=== PATIENT | female | born 1945 | race Caucasian/White ===

== ENCOUNTER 2020-07-23 09:23 | Outpatient (CLI) | payer MEDICARE, SELFPAY ==
--- NOTE | ~2020-07-23 | XR_ITS ---
EXAMINATION: XR chest 2V DATE: 07/23/2020 10:48 INDICATION: Uncontrolled hypertension presenting for preoperative evaluation for left knee arthroplas ty. TECHNIQUE: PA and lateral views of the chest were obtained. COMPARISON: 12/12/2018 FINDINGS: The lungs remain clear with no focal airspace opacities, pulmonary edema, pleural effusion or pneumot horax. The cardiomediastinal silhouette is normal. Pectus excavatum. Mild thoracic spondylosis with m inimal anterior wedging of a few lower thoracic vertebral bodies. IMPRESSION: 1. No acute cardiopulmonary disease. Reviewed, dictated and finalized at location B.
[2020-07-23 10:51] LABS: Basophils Percent Auto 0.5 % (0.2-1.2); Eosinophils Absolute Auto 0.2 K/mm3 (0-0.3); Eosinophils Percent Auto 2.4 % (0-4.4); Hematocrit 44.2 % (37.0-47.0); Hemoglobin 14.1 g/dL (12.0-15.0); Immature Granulocyte Absolute 0.02 K/mm3 (0.00-0.031); Immature Granulocyte Percent A 0.3 % (0-0.5); Lymphocytes Absolute Auto 1.46 K/mm3 (0.9-3.2); Lymphocytes Percent Auto 23.6 % (18.3-44.2); Mean Corpuscular HGB Conc 31.9 g/dl (32-36); Mean Corpuscular Volume 90.9 fl (80-100); Mean Platelet Volume 9.9 fl (7.4-10.4); Monocytes Absolute Auto 0.5 K/mm3 (0.1-0.6); Monocytes Percent Auto 8.7 % (2.6-8.5); Neutrophils Percent Auto 64.5 % (45.5-73.1); Platelet Count Result 368 k/mm3 (150-375); Red Blood Count 4.86 M/mm3 (4.2-5.4); Red Cell Distribution Width 13.5 % (11.5-14.5); White Blood Count 6.2 K/mm3 (4.5-10.0)
[2020-07-23 11:01] LABS: Hemoglobin A1C 5.4 % (<5.7); Urine Cotinine NEGATIVE
[2020-07-23 11:03] LABS: Albumin Level 4.5 g/dL (3.5-5.1); Anion Gap 7 mmol/L (8-16); Blood Urea Nitrogen 14 mg/dL (7-17); Calcium 10.4 mg/dL (8.4-10.2); Carbon Dioxide 32 mmol/L (22-30); Chloride 101 mmol/L (98-107); Estimated Glomerular Filt Rate > 60; Glucose 99 mg/dL (65-105); Potassium 4.8 mmol/L (3.4-5.0); Sodium 140 mmol/L (137-145)
== END 2020-07-23 09:24 | disposition home or self-care (01) ==
PROVIDERS: PCP Internal Medicine; Visit Provider Orthopaedic Surgery
DX: M17.12 Unilateral primary osteoarthritis, left knee (principal); Z01.818 Encounter for other preprocedural examination
CPT/HCPCS: 71046; 80048; 80307; 82040; 83036; 85025; 87070

== ENCOUNTER 2020-10-19 09:49 | Outpatient (CLI) | payer MEDICARE, SELFPAY ==
[2020-10-19 11:36] LABS: Basophils Percent Auto 0.6 % (0.2-1.2); Eosinophils Absolute Auto 0.2 K/mm3 (0-0.3); Eosinophils Percent Auto 2.2 % (0-4.4); Hematocrit 44.3 % (37.0-47.0); Immature Granulocyte Absolute 0.03 K/mm3 (0.00-0.031); Immature Granulocyte Percent A 0.4 % (0-0.5); Lymphocytes Absolute Auto 1.76 K/mm3 (0.9-3.2); Lymphocytes Percent Auto 24.4 % (18.3-44.2); Mean Corpuscular HGB Conc 31.6 g/dl (32-36); Mean Corpuscular Volume 91.9 fl (80-100); Mean Platelet Volume 10.1 fl (7.4-10.4); Monocytes Absolute Auto 0.6 K/mm3 (0.1-0.6); Monocytes Percent Auto 7.8 % (2.6-8.5); Neutrophils Absolute Auto 4.7 K/mm3 (1.3-6.7); Neutrophils Percent Auto 64.6 % (45.5-73.1); Platelet Count Result 368 k/mm3 (150-375); Red Blood Count 4.82 M/mm3 (4.2-5.4); Red Cell Distribution Width 13.3 % (11.5-14.5); White Blood Count 7.2 K/mm3 (4.5-10.0)
[2020-10-19 11:42] LABS: Urine Cotinine NEGATIVE
[2020-10-19 11:45] LABS: Hemoglobin A1C 5.5 % (<5.7)
[2020-10-19 11:48] LABS: Albumin Level 4.4 g/dL (3.5-5.1); Anion Gap 4 mmol/L (8-16); Blood Urea Nitrogen 12 mg/dL (7-17); Carbon Dioxide 33 mmol/L (22-30); Chloride 100 mmol/L (98-107); Estimated Glomerular Filt Rate > 60; Glucose 88 mg/dL (65-105); Potassium 4.4 mmol/L (3.4-5.0); Sodium 137 mmol/L (137-145)
== END 2020-10-19 09:50 | disposition home or self-care (01) ==
PROVIDERS: PCP Internal Medicine; Visit Provider Orthopaedic Surgery
DX: M17.12 Unilateral primary osteoarthritis, left knee (principal); Z51.81 Encounter for therapeutic drug level monitoring; Z79.899 Other long term (current) drug therapy
CPT/HCPCS: 80048; 80307; 82040; 83036; 85025; 86850; 86900; 86901; 87070

== ENCOUNTER 2020-10-24 00:53 | Outpatient (CLI) | payer MEDICARE, SELFPAY ==
[2020-10-24 18:47] LABS: SARS-CoV-2 RNA PCR Negative
== END 2020-10-24 00:54 | disposition home or self-care (01) ==
LOC: ANHCOVIDDT 00:53
PROVIDERS: PCP Internal Medicine; Visit Provider Orthopaedic Surgery
DX: Z01.812 Encounter for preprocedural laboratory examination (principal); Z20.822 Contact with and (suspected) exposure to COVID-19
CPT/HCPCS: C9803; U0003; U0005

== ENCOUNTER 2020-10-28 00:35 | Day surgery (SDC) | payer MEDICARE, SELFPAY ==
[2020-07-23 09:36] VITALS: BMI 30.3
[2020-07-23 10:36] VITALS: BP 113/77; PULSE 79; RESP 16; TEMP 36.6; O2SAT 97
[2020-10-19 10:12] VITALS: BP 121/69; PULSE 71; RESP 16; TEMP 36.3; O2SAT 98; BMI 30.7
--- NOTE | 2020-10-23 11:29 | PM.IMHP ---
H&P: HPI History of Present Illness Date/Time: 10/23/20 11:29 <ALEJANDRO Sommers - Last Filed: 10/23/20 11:41> Chief Complaint: Left knee DJD <ALEJANDRO Sommers - Last Filed: 10/23/20 11:41> Narrative: Corrina Gonzalez is a 74 year old female patient of Dr. Grant, who presents today for a left total knee arthroplasty. She underwent right total knee arthroplasty in December of 2018. she did very well with her recovery and is very happy with her results. She has reached a point where her left knee is bothersome for her on a daily basis. She has severe lateral compartment arthritis in the knee. She is unable take anti-inflammatories because she is on Eliquis long-term. She has had history of atrial fibrillation and recently underwent heart ablation procedure, this did correct it. Again her left knee is painful for her on a daily basis. It affects her daily activities. She feels she is ready to proceed with left total knee at this time. <ALEJANDRO Sommers - Last Filed: 10/23/20 11:41> [facility] Past Medical History Medical History: Medical History (Updated 10/28/20 @ 06:58 by Ramon Aldrich MD) A-fib Hypertension <ALEJANDRO Sommers - Last Filed: 10/23/20 11:41> Surgical History Surgical History: Surgical History History of total right knee replacement (TKR) <ALEJANDRO Sommers - Last Filed: 10/23/20 11:41> Family History Family History: Family History Other Heart disease <ALEJANDRO Sommers - Last Filed: 10/23/20 11:41> Social History Social History: Social History Smoking status: Never smoker Second hand tobacco smoke exposure: No Additional smoking assessment comments: DENIES ANY TOBACCO/NICOTINE USE Alcohol intake: current Alcohol use details: 2 DRINKS PER MONTH- WINE Substance use: never Living arrangements: alone Spiritual care concerns: No <ALEJANDRO Sommers - Last Filed: 10/23/20 11:41> Meds Home Medications and Allergies Home medications: Home Medications Medication Instructions Recorded Confirmed Type apixaban [Eliquis] 5 mg PO BID 07/23/20 10/28/20 History biotin 10,000 mcg PO QAM 07/23/20 10/28/20 History calcium carbonate-vitamin D3 1 cap PO QAM 07/23/20 10/28/20 History [Calcium With Vitamin D3] cyanocobalamin (vitamin B-12) 1,000 mcg PO DAILY 07/23/20 10/28/20 History furosemide 20 mg PO QAM 07/23/20 10/28/20 History glucosamine-chondroitin [Osteo 1 tablet PO QAM 07/23/20 10/28/20 History Bi-Flex] metoprolol succinate 150 mg PO QAM 07/23/20 10/28/20 History sacubitril-valsartan [Entresto] 24 - 26 tablet PO BID 07/23/20 10/28/20 History <ALEJANDRO Sommers - Last Filed: 10/23/20 11:41> Allergies/Adverse reactions: Allergies Allergy/AdvReac Type Severity Reaction Status Date / Time Penicillins Allergy Mild HIVES Verified 10/28/20 06:09 <ALEJANDRO Sommers Last Filed: 10/23/20 11:41> Exam Narrative: Exam Narrative: 74-year-old female very alert pleasant in no distress. She is 5 ft 10 and 218 lb. She walks with a mild limp. Range of motion left knee is from 10-140 degrees. There is normal stability. There is no effusion in the knee. Moderate tenderness over the lateral joint line. Hip range motion is full without discomfort. Negative Stinchfield maneuver. Normal quad strength. 2+ posterior tibial artery pulse. Normal sensation to the left lower extremity. Skin is all normal left lower extremity without edema. <ALEJANDRO Sommers Last Filed: 10/23/20 11:41> Resp: Auscultation: clear to auscultation bilaterally <ALEJANDRO Sommers Last Filed: 10/23/20 11:41> Cardio: Rate: regular rate <ALEJANDRO Sommers Last Filed: 10/23/20 11:41> Rhythm: regular rhythm <ALEJANDRO Sommers - Last Filed: 10/23/20 11:41> Assessment and Plan
[2020-10-28] VITALS (12 sets, daily range): BP systolic 110–151; BP diastolic 48–94; PULSE 68–97; RESP 12–18; TEMP 36.1–37.2; O2SAT 95–100
--- NOTE | ~2020-10-28 | XR_ITS ---
EXAMINATION: XR knee LT 2V DATE: 10/28/2020 11:25 INDICATION: Total left knee arthroplasty. Postop. TECHNIQUE: 2 views of left knee were obtained. COMPARISON: None. FINDINGS: There is a total left knee arthroplasty with patellar resurfacing in near-anatomic alignmen t. No fracture. There is gas in the knee joint and soft tissues, consistent with recent surgery. IMPRESSION: 1. Total left knee arthroplasty in near-anatomic alignment. Reviewed, dictated and finalized at location A. TOLOGIST
[2020-10-28] MEDS: ACETAMINOPHEN 500 MG TABLET 1000 MG PO ×3 (06:15→18:46)
[2020-10-28] MEDS: LACTATED RINGERS 1,000 ML 30 ML IV CONT ×2 (06:32→11:22)
--- NOTE | 2020-10-28 06:58 | WPDANESEPPF ---
Anes - Initial Pre Proc Eval Procedure: Operation Date: 10/28/20 07:30 Proposed Procedures p Left Total Knee Arthroplasty - Fidel De La Paz MD Date/Time: 10/28/20 06:58 Surgeon: Fidel De La Paz MD Pre Op Diagnosis: OA Left Knee Patient Data Age: 74 Gender: F Height: 5 ft 11.5 in Weight: 100.9 kg Last Vital Signs Temp 99 F 10/28/20 06:35 Pulse 70 10/28/20 06:35 Resp 16 10/28/20 06:35 BP 123/62 10/28/20 06:35 Pulse Ox 100 10/28/20 06:35 Allergies Allergy/AdvReac Type Severity Reaction Status Date / Time Penicillins Allergy Mild HIVES Verified 10/28/20 06:09 Home Medications Medication Instructions Recorded Confirmed Type apixaban [Eliquis] 5 mg PO BID 07/23/20 10/28/20 History biotin 10,000 mcg PO QAM 07/23/20 10/28/20 History calcium carbonate-vitamin D3 1 cap PO QAM 07/23/20 10/28/20 History [Calcium With Vitamin D3] cyanocobalamin (vitamin B-12) 1,000 mcg PO DAILY 07/23/20 10/28/20 History furosemide 20 mg PO QAM 07/23/20 10/28/20 History glucosamine-chondroitin [Osteo 1 tablet PO QAM 07/23/20 10/28/20 History Bi-Flex] metoprolol succinate 150 mg PO QAM 07/23/20 10/28/20 History sacubitril-valsartan [Entresto] 24 - 26 tablet PO BID 07/23/20 10/28/20 History Patient hx anesthesia problems: none Family hx anesthesia problems: none PMFSH Past Medical History Medical History (Updated 10/28/20 @ 06:58 by Ramon Aldrich MD) A-fib Hypertension Surgical History Surgical History History of total right knee replacement (TKR) Family History Family History Other Heart disease Social History Social History Smoking status: Never smoker Second hand tobacco smoke exposure: No Additional smoking assessment comments: DENIES ANY TOBACCO/NICOTINE USE Alcohol intake: current Alcohol use details: 2 DRINKS PER MONTH- WINE Substance use: never Living arrangements: alone Spiritual care concerns: No Anes - Eval Final PreProcedure Day of Procedure 10/28/20 06:58 Patient weight: obese Heart: regular rate and rhythm Lungs: clear to auscultation Airway: Mallampati scale class II Neurological: alert and oriented Last oral intake: >/= 8 hours ASA classification: III Emergent: no Anesthetic plan: proceed Anesthesia type and monitoring: general ETT and standard monitoring Informed Consent: The patient's anesthetic plan and its attendant risks and benefits were discussed with the patient/family/POA. Questions were solicited and answers provided to the satisfaction of the patient/family/POA.
[2020-10-28] MEDS: TRANEXAMIC ACID 1,000MG/ISO100 1,000 MG/100 ML BAG 200 MG IVPB (06:59)
--- NOTE | 2020-10-28 07:13 | WPDHPUPDATE1 ---
History and Physical Update Update Date/Time: 10/28/20 07:13 History and Physical has been reviewed, including an updated exam of the patient. There are NO changes in the patient's condition. Risks, benefits, and alternatives have been discussed and questions answered. Patient agrees to proceed with procedure.
[2020-10-28] MEDS: ceFAZolin 2 GM/D5W 50 ML 2 GM/50 ML BAG IVPB (07:25)
[2020-10-28] MEDS: ceFAZolin SODIUM 1 GM VIAL 3 GM IRRIGATION (08:07)
[2020-10-28] MEDS: GENTAMICIN BONE CEMENT REFOBACIN 1 EACH TOPICAL (08:08)
[2020-10-28] MEDS: ceFAZolin SODIUM 1 GM VIAL IV PUSH (10:04)
[2020-10-28] MEDS: TRANEXAMIC ACID 1,000 MG/10 ML AMPUL 1000 MG IV PUSH (10:05)
--- NOTE | 2020-10-28 11:17 | PM.PROC ---
Procedure Note - Detailed Date of procedure: 10/28/20 Pre-op diagnosis: OA Left Knee Grade 1 valgus osteoarthritis lateral compartment left knee Post-op diagnosis: same Procedure performed: Left total knee arthroplasty Description of procedure: Patient was brought to the operating room and general anesthesia was administered left leg prepped draped usual fashion. She received 2 g Ancef weight based vancomycin 1 g of tranexamic acid preoperatively and the left leg was prepped draped usual fashion. Limb was exsanguinated and tourniquet elevated to 90 mmHg. A 7 in longitudinal midline incision was used and a vastus medialis splitting approach utilized. Infrapatellar and suprapatellar fat pads were excised and a quadriceps synovectomy carried out. The patella had full-thickness cartilage loss centrally measured 23 mm and was cut to 15 mm. Bone quality was good. A protector cap was applied. A guide liz was inserted down the femoral canal after aspiration of canal contents and using the 5 degree cutting bushing 9 mm of bone removed the distal femur. This removed equal amounts medially and laterally. Next the tibial plateau was cut. We made a skim cut. She had a pronounced degree of posterior slope on her tibial plateau. The low where spot was posterolaterally where she had eburnated bone. Another 2 mm of bone had to be removed to get to the low point of the posterior margin of the lateral plateau. The anterior tibia was a little bit softer than average. Meniscal remnants were excised and the PCL released. The the femoral Sizer was applied to the distal femur set at 5? of external rotation which matched [place] line. Using the 65 vanguard cutting block AP and chamfer cuts were made. This gave a nice fit for the femoral component line to line medial collateral and anterior to posterior. On trialing we were tight laterally and a had extra play at 90? of flexion posteriorly. The distal femoral cutting block was reapplied and 2 mm of bone removed chamfer cuts revisited. The tibia was sized to a size 71 placed at proper rotation referenced off anterior tibial plateau medial 1/3 of tibial tubercle and the foot. This was punched in place. We trialed with the 11 insert and we were still a bit loose in flexion and tight in flexion particularly laterally. The on IT band was pie crusted and the posterolateral corner released the posterolateral margin of the tibial plateau. The lateral collateral and popliteus left intact. Posterior femoral osteophyte was removed and posterior central capsular release performed. We trialed again with the size 12 insert which was nice stability in flexion but still had a fairly positive bounce with only 1 mm medial opening less than 1 mm of lateral opening in extension. Therefore an additional 1 mm of bone was removed from the distal femur chamfer cuts revisited. On read trialing the knee came out to full extension with a negative bounce 2 mm medial opening 1 mm lateral. The patella was sized to a 34 thin which restored composite thickness to the patella of 23 mm and there was central patellar tracking with range of motion. We had put the tourniquet down 90 minutes and at this time the limb was re-exsanguinated and the tourniquet really beta. The a step drill was used to make multiple perforations in the dense bone the tibial plateau and posterior femur. The bony surfaces were thoroughly irrigated and dried. Two batches of methylmethacrylate Biomet were mixed 1 containing the gentamicin powder. The cement was immediately applied the tibial component and then the femoral component cement pressurized into the tibia and the 71 tibia fully seated. The cement was applied to the femur and the femoral component fully seated the knee brought into extension with a 12 mm 5 in 1 poly. The 34 thin patella was cemented tourniquet released. Cement was allowed to harden after which excess cement was sought for and removed and hemostasis achieve
[2020-10-28] MEDS: fentaNYL CITRATE INJ (*CRX) 100 MCG/2 ML VIAL 25 MCG IV PUSH ×4 (11:35→11:53)
[2020-10-28] MEDS: HYDROmorphone HCL INJ (*CRX) 1 MG/ML SYR 0.5 MG IV PUSH ×4 (12:01→12:20)
--- NOTE | 2020-10-28 13:08 | ADMGEN ---
This patient, Corrina Gonzalez, was admitted to 2 Medical Room 257-01. Patient/family oriented to hospital policies and general routines including ID bracelet, bed and alarms, visiting hours, pain management, procedures, bathroom and other care routines, personal items, smoking policy, room service/diet, and visiting hours. Information on how to activate the Rapid Response Team has been discussed. Patient/Family are encouraged to report perceived risks to care and to ask questions if they do not understand what they are told or what they should do.
[2020-10-28] MEDS: oxyCODONE HCL (*CRX) 2.5 MG TAB IR PO ×3 (13:15→20:35)
[2020-10-28] MEDS: SODIUM CHLORIDE 0.9% IV 1,000 ML 125 ML IV CONT (13:16)
[2020-10-28] MEDS: DOCUSATE SODIUM 100 MG CAPSULE PO (16:35)
[2020-10-28] MEDS: SENNA/DOCUSATE SODIUM TABLET 2 TAB PO (18:47)
[2020-10-28] MEDS: CELECOXIB 200 MG CAPSULE PO (20:35)
[2020-10-28] MEDS: SACUBITRIL/VALSARTAN 24-26 MG TABLET 1 TAB PO (20:35)
[2020-10-29] VITALS (8 sets, daily range): BP systolic 96–116; BP diastolic 46–59; PULSE 71–96; RESP 18; TEMP 36.6–37; O2SAT 97–100
[2020-10-29] MEDS: oxyCODONE HCL (*CRX) 2.5 MG TAB IR PO ×2 (01:03→05:41)
[2020-10-29] MEDS: ACETAMINOPHEN 500 MG TABLET 1000 MG PO ×3 (01:04→12:51)
[2020-10-29 06:04] LABS: Anion Gap 3 mmol/L (8-16); Blood Urea Nitrogen 10 mg/dL (7-17); Calcium 8.4 mg/dL (8.4-10.2); Carbon Dioxide 26 mmol/L (22-30); Chloride 106 mmol/L (98-107); Estimated CRCL calculation 95 ml/min; Estimated Glomerular Filt Rate > 60; Glucose 94 mg/dL (65-105); Potassium 4.1 mmol/L (3.4-5.0); Sodium 135 mmol/L (137-145)
[2020-10-29 06:11] LABS: Basophils Percent Auto 0.2 % (0.2-1.2); Eosinophils Percent Auto 0.3 % (0-4.4); Hematocrit 35.3 % (37.0-47.0); Hemoglobin 11.1 g/dL (12.0-15.0); Immature Granulocyte Absolute 0.03 K/mm3 (0.00-0.031); Immature Granulocyte Percent A 0.3 % (0-0.5); Lymphocytes Percent Auto 18.7 % (18.3-44.2); Mean Corpuscular HGB Conc 31.4 g/dl (32-36); Mean Corpuscular Hemoglobin 29.5 pg (26-34); Mean Corpuscular Volume 93.9 fl (80-100); Mean Platelet Volume 10.2 fl (7.4-10.4); Monocytes Absolute Auto 1.5 K/mm3 (0.1-0.6); Monocytes Percent Auto 15.2 % (2.6-8.5); Neutrophils Absolute Auto 6.3 K/mm3 (1.3-6.7); Neutrophils Percent Auto 65.3 % (45.5-73.1); Platelet Count Result 246 k/mm3 (150-375); Red Blood Count 3.76 M/mm3 (4.2-5.4); Red Cell Distribution Width 13.5 % (11.5-14.5); White Blood Count 9.7 K/mm3 (4.5-10.0)
--- NOTE | 2020-10-29 06:59 | PM.PNORT ---
Progress Note: A&P Additional Plan POD 1 alert avss, dressing is dry NVI, pt has been up walking with PT yesterday and doing well, pain is well controlled, labs-noted, plan to send pt home later today Subjective Subjective Date/Time Seen: 10/29/20 06:59 Objective Data Vital Signs Vital Signs: Vital Signs - 24 hr 10/28/20 11:25 10/28/20 11:41 10/28/20 11:55 Temperature 36.2 C L Pulse Rate 78 80 83 Respiratory Rate 16 16 12 Blood Pressure 119/94 H 134/83 137/63 Pulse Oximetry 100 96 97 10/28/20 12:10 10/28/20 12:25 10/28/20 12:36 Temperature Pulse Rate 82 82 81 Respiratory Rate 14 18 16 Blood Pressure 110/48 L 130/65 132/88 Pulse Oximetry 100 100 95 10/28/20 12:50 10/28/20 13:05 10/28/20 13:30 Temperature 36.1 C L 36.1 C L 36.2 C L Pulse Rate 97 68 72 Respiratory Rate 16 14 16 Blood Pressure 139/63 142/65 H 140/65 Pulse Oximetry 98 98 98 10/28/20 18:00 10/28/20 20:00 10/29/20 00:00 Temperature 36.6 C 37.2 C 37.0 C Pulse Rate 81 80 89 Respiratory Rate 16 18 18 Blood Pressure 142/62 H 151/77 H 96/56 L Pulse Oximetry 99 97 97 10/29/20 04:00 Temperature 36.9 C Pulse Rate 78 Respiratory Rate 18 Blood Pressure 109/46 L Pulse Oximetry 97 Intake/Output Intake/Output: Intake & Output 10/26/20 10/27/20 10/28/20 10/29/20 23:59 23:59 23:59 23:59 Intake Total 1710 500 Output Total 400 1400 Balance 1310 -900 Meds/Results Medications: Active Medications Generic Name Dose Route Start Last Admin Trade Name Thienq PRN Reason Stop Dose Admin Acetaminophen 1,000 mg 10/28/20 19:00 10/29/20 06:37 Acetaminophen 500 Mg Tablet PO 1,000 mg Q6H [facility] Administration Calcium Carbonate 500 mg 10/29/20 09:00 Calcium/Vitamin D 500 Mg Tablet PO [facility] Celecoxib 200 mg 10/28/20 20:00 10/28/20 20:35 Celecoxib 200 Mg Capsule PO 200 mg DAILY@0800 [facility] Administration Cyanocobalamin 1,000 mcg 10/29/20 09:00 Cyanocobalamin 1,000 Mcg Tablet PO DAILY [facility] Docusate Sodium 100 mg 10/28/20 17:00 10/28/20 16:35 Docusate Sodium 100 Mg Capsule PO 100 mg BID [facility] Administration Enoxaparin Sodium 30 mg 10/29/20 09:00 Enoxaparin 30 Mg/0.3 Ml Syringe SUB-Q 11/11/20 09:00 Q12HR [facility] Vancomycin HCl 1,000 mg in 250 mls @ 250 mls/hr 10/28/20 19:00 10/29/20 06:43 Vancomycin 1,000 Mg/D5w 250 Ml IVPB 10/29/20 07:59 250 mls/hr Q12H [facility] Administration Cefazolin Sodium 1 gm in 50 mls @ 100 mls/hr 10/28/20 15:30 10/29/20 00:20 Ancef 1 Gm/D5w 50 Ml Pm IVPB 10/29/20 07:59 Infused Q8H [facility] Infusion Metoprolol Succinate 150 mg 10/29/20 09:00 Metoprolol Succinate Ext Rel 50 Mg Tabcr PO QAM [facility] Naloxone HCl 0.1 mg 10/28/20 12:38 Naloxone Hcl 0.4 Mg/Ml Vial IV PUSH Q2M PRN Opiate Reversal Oxycodone HCl 2.5 mg 10/28/20 12:38 10/29/20 05:41 Oxycodone Hcl (*Crx) 2.5 Mg Tab Ir PO 2.5 mg Q4H [facility] Administration Oxycodone HCl 5 mg 10/28/20 12:38 Oxycodone Hcl (*Crx) 5 Mg Tab Ir PO Q4H PRN Pain Rated 7-10 Polyethylene Glycol 17 gm 10/29/20 09:00 Polyethylene Glycol 3350 17 Gm Powd.Pack PO QAM [facility] Sacubitril/Valsartan 1 tab 10/28/20 21:00 10/28/20 20:35 Sacubitril/Valsartan 24-26 Mg Tablet PO 1 tab Q12HR [facility] Administration Senna/Docusate Sodium 2 tab 10/28/20 17:00 10/28/20 18:47 Senna/Docusate Sodium Tablet PO 2 tab BID [facility] Administration Radiology Results: ITS Impressions Knee X-Ray 10/28/20 11:27 IMPRESSION: 1. Total left knee arthroplasty in near-anatomic alignment. Labs Labs: Laboratory Results - last 24 hr 10/29/20 10/29/20 05:13 05:13 WBC 9.7 RBC 3.76 L Hgb 11.1 L Hct 35.3 L MCV 93.9 MCH 29.5 MCHC 31.4 L RDW 13.5 Plt Count 246 MPV 10.2 Immature Gran % (Auto) 0.3 Neut % (Auto) 65.3 Lymph % (Auto) 18.7 [place] % (Auto) 15.2 H Eos % (Auto) 0.3 Baso % (Auto) 0.2 Lymph # (Auto) 1.80 [place]
--- NOTE | 2020-10-29 07:12 | PM.DS ---
DS: Admitting Diagnosis Admitting Diagnosis Admitting Diagnosis: left knee DJD DS: Summary Hospital Course Hospital Course: 74-year-old female who underwent left total knee arthroplasty by Dr. De La Paz on 10/28/2020. Underwent procedure without any complications postoperatively she has been afebrile signs was stable in a rash intact her wound is dry she has a Mepilex dressing over it. She is weight-bearing as tolerated. She is on Lovenox 30 mg b.i.d. for 2 weeks for DVT prophylaxis and then she will resume her Eliquis 5 mg that she is on chronically. Pain is well controlled with Tylenol as well as oxycodone and Celebrex once a day. She was up walking with physical therapy the day of surgery and comfortable. Labs on postop day 1 were noted. no abnormalities only a slight anemia from surgery. Patient was discharged to home on 10/29. She has outpatient therapy starting Monday. Patient was advised to keep leg elevated at home prevent swelling also do exercise on a regular basis. She had a right knee replaced approximately a year and a half ago and is well aware of the recovery and is comfortable with that. He has also revise any questions or concerns when she goes home she should call the office otherwise will see her appointment date DS: Data Data Completed and Pending Labs on day of discharge: Labs from last 24 hours 10/29/20 10/29/20 05:13 05:13 WBC 9.7 RBC 3.76 L Hgb 11.1 L Hct 35.3 L MCV 93.9 MCH 29.5 MCHC 31.4 L RDW 13.5 Plt Count 246 MPV 10.2 Immature Gran % (Auto) 0.3 Neut % (Auto) 65.3 Lymph % (Auto) 18.7 [place] % (Auto) 15.2 H Eos % (Auto) 0.3 Baso % (Auto) 0.2 Lymph # (Auto) 1.80 [place] # (Auto) 1.5 H Eos # (Auto) 0.0 Baso # (Auto) 0.0 Abs Immat Gran (auto) 0.03 Absolute Neuts (auto) 6.3 Absolute Nucleated RBC 0.0 Nucleated RBC % 0.0 Sodium 135 L Potassium 4.1 Chloride 106 Carbon Dioxide 26 Anion Gap 3 L BUN 10 Creatinine 0.60 L Estim Creat Clear Calc 95 Estimated GFR > 60 Glucose 94 Calcium 8.4 Discharge Plan Discharge Patient Disposition: Home, Self-Care Discharge Instructions: FIDEL DE LA PAZ M.D [facility], [place] [id number] [place] [address] POST-OPERATIVE DISCHARGE INSTRUCTIONS TOTAL KNEE ARTHROPLASTY 1. When resting, lie on back with leg elevated above hear to minimize swelling. Significant swelling could indicate a blood clot and if this occurs call the office (or go to the ER) to have a venous ultrasound. 2. Do exercise 5 times a day. 3. Do not sit with leg down except for meals. 4. Wound Care: Nursing will give additional dressings at discharge. Patient to change dressing at home 1 week from surgery, then maintain until seen in office. 5. May shower with dressing in place. 6. Follow weight bearing status instructions. Patient Instructions: Apixaban (By mouth) Stand Alone Forms: General Discharge Instructions Follow-up/Referrals: Fidel De La Paz MD [Physician] - Keep Reg. Scheduled Appt. Discharge Medications: New acetaminophen 500 mg Tablet 1,000 mg PO Q6H Qty: 90 RF: 0 celecoxib [Celebrex] 200 mg Capsule 200 mg PO DAILY@0800 Qty: 14 RF: 0 enoxaparin 30 mg/0.3 mL Syringe 30 mg subcut Q12HR Qty: 27 RF: 0 oxycodone 5 mg Tablet 5 mg PO Q4H Qty: 50 RF: 0 Continued metoprolol succinate 50 mg tablet extended release 24 hr 150 mg PO QAM RF: 0 furosemide 20 mg tablet 20 mg PO QAM RF: 0 calcium carbonate-vitamin D3 500 mg(1,250mg) -50 unit Capsule 1 cap PO QAM RF: 0 Entresto 24-26 mg tablet 24 - 26 tablet PO BID RF: 0 biotin 10,000 mcg Capsule 10,000 mcg PO QAM RF: 0 glucosamine-chondroitin [Osteo Bi-Flex] 250-200 mg Tablet 1 tablet PO QAM RF: 0 cyanocobalamin (vitamin B-12) 1,000 mcg Tablet 1,000 mcg PO DAILY RF: 0 Discontinued Eliquis 5 mg tablet 5 mg PO
--- NOTE | 2020-10-29 08:50 | PC.NURSE ---
Scheduled dose of Oxycontin 2.5 mg held at 0800 - patient requested a dose of 5 mg instead due to pain 06/04 and she will be working with P.T. this morning.
[2020-10-29] MEDS: CELECOXIB 200 MG CAPSULE PO (08:51)
[2020-10-29] MEDS: oxyCODONE HCL (*CRX) 5 MG TAB IR PO ×2 (08:51→13:06)
--- NOTE | 2020-10-29 09:22 | P.PNAN_ITS ---
Anes - Prog Note Post-Op Date/Time: 10/29/20 09:22 Cardiovascular status: normal Respiratory status: normal Airway patency: baseline Mental status: baseline Post-Op hydration status: normal Vital Signs: Last Vital Signs Temp 36.9 C 10/29/20 04:00 Pulse 78 10/29/20 04:00 Resp 18 10/29/20 04:00 BP 109/46 L 10/29/20 04:00 Pulse Ox 97 10/29/20 04:00 Pain Score (VAS): 10/04 I/O: Intake & Output 10/28/20 10/29/20 10/29/20 23:59 07:59 15:59 Intake Total 1310 500 240 Output Total 400 1400 Balance 910 -900 240 Laboratory Tests 10/29/20 05:13 10/29/20 05:13 10/29/20 10/29/20 05:13 05:13 WBC 9.7 RBC 3.76 L Hgb 11.1 L Hct 35.3 L MCV 93.9 MCH 29.5 MCHC 31.4 L RDW 13.5 Plt Count 246 MPV 10.2 Immature Gran % (Auto) 0.3 Neut % (Auto) 65.3 Lymph % (Auto) 18.7 [place] % (Auto) 15.2 H Eos % (Auto) 0.3 Baso % (Auto) 0.2 Lymph # (Auto) 1.80 [place] # (Auto) 1.5 H Eos # (Auto) 0.0 Baso # (Auto) 0.0 Abs Immat Gran (auto) 0.03 Absolute Neuts (auto) 6.3 Absolute Nucleated RBC 0.0 Nucleated RBC % 0.0 Sodium 135 L Potassium 4.1 Chloride 106 Carbon Dioxide 26 Anion Gap 3 L BUN 10 Creatinine 0.60 L Estim Creat Clear Calc 95 Estimated GFR > 60 Glucose 94 Calcium 8.4 Post-procedural complaints: none Patient Feedback: Patient satisfied with anesthetic care.
[2020-10-29] MEDS: polyethylene glycoL 3350 17 GM POWD.PACK PO (09:59)
[2020-10-29] MEDS: DOCUSATE SODIUM 100 MG CAPSULE PO (09:59)
[2020-10-29] MEDS: APIXABAN 2.5 MG TABLET PO (10:00)
[2020-10-29] MEDS: METOPROLOL SUCCINATE EXT REL 50 MG TABCR 150 MG PO (10:01)
[2020-10-29] MEDS: SACUBITRIL/VALSARTAN 24-26 MG TABLET 1 TAB PO (10:01)
[2020-10-29] MEDS: SENNA/DOCUSATE SODIUM TABLET 2 TAB PO (10:03)
[2020-10-29] MEDS: CYANOCOBALAMIN 1,000 MCG TABLET 1000 MCG PO (10:03)
--- NOTE | 2020-10-29 12:59 | PC.NURSE ---
Patient asked for the Oxycodone 5 mg prn tab before therapy, refused 2.5mg scheduled dose.
--- NOTE | 2020-10-29 15:00 | PC.NURSE ---
Called Dr. De La Paz to clarify anticoagulation orders - Lovenox vs Eliquis. Per Dr. De La Paz, patient will go home on Eliquis 2.5 mg po every 12 hours for 2 weeks and is NOT to have Lovenox in addition. Patient's pharmacy called and notified of same. Patient also aware and states she was told the same by Dr. De La Paz on rounds today.
--- NOTE | 2020-10-29 15:31 | PC.NURSE ---
On 10/29/20, the student, [ Magda Miller], provided care and completed [facility] documentation on this patient. I have reviewed the student's documentation and agree with the findings.
== END 2020-10-29 15:15 | disposition home or self-care (01) ==
LOC: ANHSURGERY 05:57 → ANH2MED 12:59
PROVIDERS: PCP Internal Medicine; Visit Provider Orthopaedic Surgery
PROC: (CPT 27447; principal; 2020-10-28 07:30)
DX: M17.12 Unilateral primary osteoarthritis, left knee (principal); I48.91 Unspecified atrial fibrillation; I10 Essential (primary) hypertension; E66.9 Obesity, unspecified; Z68.30 Body mass index [BMI] 30.0-30.9, adult
CPT/HCPCS: 27447; 36415; 73560; 80048; 85025; 97110; 97116; 97161; 97165; 97530; 97535; A9270; C1713; C1776; J0171; J0690; J1100; J1170; J2250; J2270; J2370; J2405; J2704; J2795; J3010; J3370; J7030; J7120

== ENCOUNTER → 2023-07-28 08:23 | Outpatient (CLI) | payer MEDICARE, SELFPAY ==
--- NOTE | ~2023-07-28 | US_ITS ---
EXAMINATION: US thyroid DATE: 07/28/2023 08:48 INDICATION: Abnormal thyroid hormone levels. Enlarged thyroid. TECHNIQUE: Multiple ultrasound images of the thyroid were obtained. COMPARISON: None. FINDINGS: The right thyroid lobe measures 6.5 x 3.4 x 2.7 cm. The left thyroid lobe measures 4.3 x 2.2 x 1.7 c m. In the right thyroid lobe, there is a 16 mm predominantly solid, hypoechoic, wider than tall nodu le with smooth margin without echogenic foci (TI-RADS TR4). In the left thyroid lobe, there is a 10 m m solid, hypoechoic, wider than tall nodule with ill-defined margin without echogenic foci (TR4). In the left thyroid lobe, there is a 3.5 cm predominantly solid, hypoechoic, wider than tall nodule with ill-defined margin without echogenic foci (TR4). IMPRESSION: 1. Thyroid nodules. Ultrasound-guided fine-needle aspiration of 2 nodules is recommended. Reviewed, dictated and finalized at location E. IMPRESSION: 1. Thyroid nodules. Ultrasound-guided fine-needle aspiration of 2 nodules is re commended.
== END ==
PROVIDERS: PCP Physician Assistant Medical; Visit Provider Physician Assistant Medical
DX: E04.2 Nontoxic multinodular goiter (principal)
CPT/HCPCS: 76536